=== PATIENT | male | born 1980 | race Caucasian/White ===

== ENCOUNTER 2021-07-23 08:25 | Inpatient (IN) | payer OTHER ==
[~2021-07-23] VITALS: Ht 175.3 cm; Wt 83.5 kg
[2021-07-23] MEDS ORDERED: MASOPHEN325 M4 PO (09:24)
[2021-07-23] MEDS ORDERED: IBUP400 PO (09:25)
[2021-07-23] MEDS ORDERED: GABA300 PO (09:25)
[2021-07-23] MEDS ORDERED: OXYC10ER PO (09:26)
[2021-07-23] MEDS ORDERED: ATOR40TA PO (09:26)
[2021-07-23 10:22] LABS: Hematocrit 34.2 % (37.0-53.0); Hemoglobin 10.8 g/dL (13.5-17.5); Mean Corpuscular HGB 31.6 pg (26.0-34.0); Mean Corpuscular HGB Conc 31.6 g/dL (31.5-36.5); Mean Corpuscular Volume 100 fL (80-100); Mean Platelet Volume 9.3 fL (9.1-12.4); Platelet Count 276 K/mm3 (150-400); RDW Coefficient Variation 12.8 % (11.7-14.2); Red Blood Cell Count 3.42 M/mm3 (4.30-5.90); White Blood Cell Count 10.67 K/mm3 (4.00-11.30)
[2021-07-23 10:43] LABS: Albumin, Blood 2.7 g/dL (3.4-5.0); Albumin/Globulin Ratio 0.7 (0.8-1.8); Bilirubin, Total 0.3 mg/dL (0.1-1.0); Bun/Creatinine Ratio 9.8 (12.0-20.0); Creatinine, Blood 3.38 mg/dL (0.60-1.20); Globulin, Blood 3.8 g/dL (2.2-4.0); Potassium, Blood 4.2 mmol/L (3.5-5.5); Total Protein, Blood 6.5 g/dL (6.4-8.2)
[2021-07-23 10:51] LABS: BAND PERCENT MAN 22 % (0-8); BASOPHILS PERCENT MAN 0 % (0-2); EOSINOPHILS PERCENT MAN 0 % (0-6); LYMPHOCYTES ABSOLUTE MAN 0.21 K/mm3 (0.84-5.20); LYMPHOCYTES PERCENT MAN 2 % (21-46); MONOCYTES PERCENT MAN 0 % (4-13); NEUTROPHILS ABSOLUTE MAN 10.45 K/mm3 (1.96-9.15); SEG NEUTROPHILS PERCENT MAN 76 % (41-73); TOTAL CELLS COUNTED 100
[2021-07-23 12:31] LABS: Source, Urine Voided
[2021-07-23 12:42] LABS: Appearance, Urine Clear (Clear); Blood, Urine 2+ (Neg); Color, Urine Yellow (P-Yellow); Glucose Qualitative, Urine Neg (Neg); Ketones, Urine Neg (Neg); Leukocyte Esterase, Urine Neg (Neg); Nitrite, Urine Neg (Neg); Protein, Urine 2+ (Neg); Specific Gravity, Urine 1.015 (1.003-1.022); Urobilinogen, Urine NORM (Normal)
[2021-07-23 12:54] LABS: Bilirubin, Urine 1+ (Neg)
[2021-07-23 12:57] LABS: Bacteria Few /hpf; Red Blood Cells, Urine 0-2 /hpf (0-2); Renal Epithelial Rare /hpf (0-Rare); Squamous Epithelial Cells Rare /hpf (Few)
[2021-07-23 15:58] LABS: Base Excess Venous -11.9 mmol/L; Bicarbonate Venous 16.4 mmol/L (24.0-30.0); PCO2 Venous 21.6 mmHg (38-42); PO2 Venous 124 mmHg (38-42); pH Blood Venous 7.39 (7.34-7.37)
[2021-07-23 16:22] LABS: International Normalized Ratio 1.12; Prothrombin Time Results 11.7 Sec (9.7-11.5)
[2021-07-23 16:59] LABS: PCO2 Venous 23.5 mmHg (38-42); pH Blood Venous 7.35 (7.34-7.37)
[2021-07-23 17:00] LABS: Base Excess Venous -12.7 mmol/L; Bicarbonate Venous 15.7 mmol/L (24.0-30.0); PO2 Venous 174 mmHg (38-42)
[2021-07-23 17:31] LABS: Hematocrit 30.7 % (37.0-53.0); Hemoglobin 9.7 g/dL (13.5-17.5)
[2021-07-23 17:55] LABS: Creatine Kinase MB 16.4 ng/mL (0.0-3.6); Creatine Kinase MB Index 1.4 (0.0-4.0)
[2021-07-23 19:27] LABS: Hematocrit 31.9 % (37.0-53.0); Hemoglobin 10.2 g/dL (13.5-17.5)
--- NOTE | 2021-07-23 20:45 | NUR ---
PATIENT FEBRILE; NO TYLENOL ORDERS; CALLED DR. AGUILAR AND ORDERS RECIEVED.
--- NOTE | 2021-07-23 21:34 | NUR ---
Assumed care of pt at 1900 as a new ER admit. A/Ox4. Hx of cerebral palsy with multiple joint/tendon surgeries to ble and history of cholecystectomy. Pt has chronic joint pain from this. Maintains above 95% on RA, but 2L NC added for comfort. LS clear upper lobes and dim at bases. Pt reports moist nonproductive cough, does not wear O2 at home. ST on tele 120's with 140's while ambulating. Patient normally ambulates w/o use of any assistive devices at home, and currently is too weak to use restroom and thus is using BSC with SBA. Faint +1 pedal/radial pulses bl. Heparin infusion stopped per emar. Pt has chronic diarrhea since his sherwin in 2009. BP wnl. Will update as changes occur.
[2021-07-24 03:57] LABS: Hemoglobin 9.1 g/dL (13.5-17.5); Mean Corpuscular HGB 31.3 pg (26.0-34.0); Mean Corpuscular HGB Conc 32.5 g/dL (31.5-36.5); Mean Corpuscular Volume 96 fL (80-100); Mean Platelet Volume 9.4 fL (9.1-12.4); Platelet Count 245 K/mm3 (150-400); RDW Coefficient Variation 12.9 % (11.7-14.2); RDW Standard Deviation 45.8 fL (35.1-46.3); Red Blood Cell Count 2.91 M/mm3 (4.30-5.90); White Blood Cell Count 13.47 K/mm3 (4.00-11.30)
[2021-07-24 04:19] LABS: BAND PERCENT MAN 27 % (0-8); BASOPHILS PERCENT MAN 0 % (0-2); EOSINOPHILS PERCENT MAN 0 % (0-6); LYMPHOCYTES ABSOLUTE MAN 0.53 K/mm3 (0.84-5.20); LYMPHOCYTES PERCENT MAN 4 % (21-46); METAMYELOCYTE ABSOLUTE MAN 0.13 K/mm3 (0.00-0.00); METAMYELOCYTE PERCENT MAN 1 % (0-0); MONOCYTES PERCENT MAN 3 % (4-13); NEUTROPHILS ABSOLUTE MAN 12.39 K/mm3 (1.96-9.15); SEG NEUTROPHILS PERCENT MAN 65 % (41-73); TOTAL CELLS COUNTED 100
[2021-07-24 04:22] LABS: Magnesium, Blood 2.4 mg/dL (1.6-2.4)
[2021-07-24 04:23] LABS: Alanine Aminotransfer (ALT/SGP 25 U/L (12-78); Albumin, Blood 2.1 g/dL (3.4-5.0); Albumin/Globulin Ratio 0.6 (0.8-1.8); Alk Phos 64 U/L (50-136); Anion Gap 9 mmol/L (6-16); Aspartate Aminotrans (AST/SGOT 53 U/L (12-37); Bilirubin, Total 0.3 mg/dL (0.1-1.0); Blood Urea Nitrogen 27 mg/dL (8-24); CO2, Blood 19 mmol/L (21-32); Calcium, Blood 7.5 mg/dL (8.5-10.1); Chloride, Blood 112 mmol/L (98-108); Creatinine, Blood 1.08 mg/dL (0.60-1.20); Globulin, Blood 3.6 g/dL (2.2-4.0); Glomerular Filtration Rate >60 (60-); Glucose, Blood 130 mg/dL (70-99); Potassium, Blood 3.8 mmol/L (3.5-5.5); Sodium, Blood 140 mmol/L (136-145); Total Protein, Blood 5.7 g/dL (6.4-8.2)
--- NOTE | 2021-07-24 11:59 | NUR ---
APPLE HELD IS VERY CONCERNED ABOUT MEDICATION FROM INDEPENDANT RESEARCH SHE HAS DONE AT HOME ON GOOGLE ABOUT MEDCIATION, SHE EXPRESSED CONCERN THAT SHE "KNOWS OF PEOPLE WHO HAVE FROM TAKING IT, AND WE NEED HIM TO COME HOME." "CHRIS" IS EDUCATED ABOUT MEDICATION, CHRIS IS PT'S POA PER HER REPORT, HER WISHES ARE HONORED AND MEDICATION IS HELD. IS THOROUGHLY UPDATED ON PT'S STATUS DURING THIS PHONE CALL. PT O2 DECREASED TO 5L NC WITH SPO2 96%. FLUIDS ARE INFUSING AT THIS TIME, VSS
[2021-07-24 16:20] LABS: CHOL/HDL RATIO 4.5; Cholesterol 67 mg/dL (50-200); HDL Cholesterol 15 mg/dL (>39); LDL/HDL RATIO 0.3; Low Density Lipoprotein Chol 5 mg/dL (0-110); Triglycerides 236 mg/dL (30-160); Troponin I 0.475 ng/mL (0.000-0.040); Very Low Density Lipoprot Chol 47 mg/dL (6-32)
--- NOTE | 2021-07-24 17:29 | NUR ---
SHIFT NOTE PT'S O2 NEEDS HAVE DECREASED DURING THIS SHIFT TO 2L NC FROM 7L. PT REPORTS IMPROVEMENT OF BREATHING, STS THAT IS NOW EASIER FOR HIM TO GET UP TO BSC AND BACK TO BED. PT WITH VERY MINIMAL DESATURATION WITH AMBULATION AND RECOVERS QUICKLY. HE IS TALKING IN FULL SENTENCES T/O THE DAY ANSWERS QUESTIONS APPROPRIATELY. VSS. PT'S PAIN AND FEVER HAVE BEEN MANAGED PER EMAR T/O THE DAY. CARDIO CONSULT WITH DR DEMARCO CALLED IN BY DR LAZAR AND CONFIRMED BY PROGRAM DIRECTOR SUBSTANCE ABUSE GABE. ECHO HAS BEEN COMPLETED THIS EVENING RESULTS ARE PENDING. NS CHANGED TO 75ML/HR WHICH IS INFUSING WELL AT THIS TIME. PT STS THAT HE FEELS THAT HE IS WELL ENOUGH TO GO HOME TOMORROW. PT DOES REMAIN ANXIOUS AND AT TIMES EASILY AGITATED. PT WITH DIARRHEA NOTED, PT STS HAS BEEN NORMAL FOR HIM SINCE HIS GALLBLADDER WAS REMOVED.
[2021-07-25 04:14] LABS: Hematocrit 27.2 % (37.0-53.0); Hemoglobin 8.9 g/dL (13.5-17.5); Mean Corpuscular HGB 31.2 pg (26.0-34.0); Mean Corpuscular HGB Conc 32.7 g/dL (31.5-36.5); Mean Corpuscular Volume 95 fL (80-100); Mean Platelet Volume 9.6 fL (9.1-12.4); NRBC ABSOLUTE 0.02 K/mm3 (0.00-0.02); NRBC Auto 0.1 /100 WBC (0.0-0.2); Platelet Count 291 K/mm3 (150-400); RDW Coefficient Variation 12.5 % (11.7-14.2); RDW Standard Deviation 44.3 fL (35.1-46.3); Red Blood Cell Count 2.85 M/mm3 (4.30-5.90); White Blood Cell Count 16.68 K/mm3 (4.00-11.30)
[2021-07-25 04:43] LABS: Albumin, Blood 2.1 g/dL (3.4-5.0); Anion Gap 9 mmol/L (6-16); Blood Urea Nitrogen 29 mg/dL (8-24); Bun/Creatinine Ratio 45.8 (12.0-20.0); CO2, Blood 19 mmol/L (21-32); CPK Creatine Kinase 522 U/L (39-308); Calcium, Blood 8.4 mg/dL (8.5-10.1); Chloride, Blood 113 mmol/L (98-108); Creatinine, Blood 0.63 mg/dL (0.60-1.20); Glomerular Filtration Rate >60 (60-); Glucose, Blood 107 mg/dL (70-99); Phosphorus, Blood 1.6 mg/dL (2.5-4.9); Potassium, Blood 3.7 mmol/L (3.5-5.5); Sodium, Blood 141 mmol/L (136-145)
[2021-07-25 05:16] LABS: BAND PERCENT MAN 11 % (0-8); BASOPHILS PERCENT MAN 0 % (0-2); EOSINOPHILS PERCENT MAN 0 % (0-6); LYMPHOCYTES ABSOLUTE MAN 0.83 K/mm3 (0.84-5.20); LYMPHOCYTES PERCENT MAN 5 % (21-46); MONOCYTES PERCENT MAN 6 % (4-13); NEUTROPHILS ABSOLUTE MAN 14.84 K/mm3 (1.96-9.15); SEG NEUTROPHILS PERCENT MAN 78 % (41-73); TOTAL CELLS COUNTED 100
--- NOTE | 2021-07-25 05:56 | NUR ---
SHIFT SUMMARY PT IS ALERT AND ORIENTED. PT HAS BEEN NAUSEATED WITH VOMITING AT TIME. PT DENIES CHEST PAIN/PRESSURE. VITAL SIGNS ARE STABLE. PT REPORTS PAIN DUE TO CHRONIC PAIN. HE REFUSES TO BE REPOSITIONED. PT IS ABLE TO GET UP TO BSC BY SBA. PT HAS MENTIONED SEVERAL TIMES THAT HE WANTS TO GO HOME TODAY. HE IS ABLE TO USE CALL LIGHT APPROPRIETLY.
--- NOTE | 2021-07-25 13:02 | NUR ---
RECEIVED TELEPHONE REPORT FROM MARI AYALA RN AT 1146. RECEIVED PATIENT TO ROOM 661 VIA BED FROM PCU AT 1205. PATIENT WAS NAUSEOUS ON ARRIVAL AND STARTED DRY HEAVING. WAS IN DIRECT PATIENT CARE WITH HIM FROM [id number] WHERE HE WAS MEDICATED WITH ZOFRAN IV. ASSESSED. AAO X 4. LUNGS CLEAR BUT DIMINISHED ON ROOM AIR. RESPIRATIONS EVEN AND UNLABORED. OLERICULTURIST INTACT. BATTERIES CHANGED AND VERIFIED SR 80'S WITH QUALITY DIRECTOR. NAUSEA IMPROVED A FEW MINUTE AFTER RECEIVING ZOFRAN. HL INTACT L WRIST AND R ANTECUBITAL AREA. ORIENTED TO NEW ROOM AND ENVIRONMENT. BSCC AT BEDSIDE. PATIENT REQUESTED FOOD BY THE TIME NURSE WAS LEAVING. LEGAL NURSE CONSULTANT GETTING HIM SOME CLEAR LIQUIDS AND ORDERING A REGULAR DIET TRAY FOR HIM WELL. PT/OT INVOLVED IN CARE. EVALUATED EARLIER BY PT. WILL MONITOR.
[2021-07-25 13:57] LABS: Percent Saturation 18.1 % (20.0-50.0)
--- NOTE | 2021-07-25 13:59 | NUR ---
PT TRANSITIONED TO MEDICAL STATUS WITH TELE, REPORT GIVEN TO CELINA GARCIA, TRANSFERRED VIA HOSPITAL BED. PT HAVING PAIN AND NAUSEA ISSUES THIS MORNING, PO PAIN MEDS OXYCODONE 10MG WAS RESUMED IV FENTANYL DC'D, ADDED REGLAN 10MG IV FOR NAUSEA WAS GIVEN X1 AND WAS EFFECTIVE. PT WAS ABLE TO TALK TO THE PROVIDER ABOUT PLAN OF CARE, WAS ALSO INVOLVED HAS HAD CONVERSATIONS WITH THIS RN, WIND ENERGY MECHANIC AND THE PROVIDER ABOUT PT'S PLAN OF CARE, IS BEING ANXIOUS ABOUT THE PT AND WAS RE-ASSURED ABOUT PT'S STATUS. PT/OT EVAL ORDERED PT WAS ABLE TO WORK WITH PHYSICAL THERAPIST NO ISSUES REPORTED OTHER THAN FEELING NAUSEOUS WHEN TAKING STEPS OR STANDING UP, RECOMMENDED HOME HEALTH PT. HOME O2 EVAL ORDERED WELL PRIOR TO DISCHARGE. PT WAS RESITUATED IN BED FOR BACK PAIN COMFORT, NO CHEST PAIN REPORTED VITALS HAS BEEN STABLE, NO ABNORMALITY REPORTED ON TELE REMAINS SINUS/SINUS TACH 90-110'S, ON ROOMAIR THE ENTIRE SHIFT SATS ABOVE 95%, HAS DRY COUGH. ALL BELONGINGS SENT WITH THE PT, TRANSFERRED VIA HOSPITAL BED
--- NOTE | 2021-07-25 14:47 | NUR ---
RECEIVED CALL FROM PATIENT'S , WHICH SHE STATED SHE IS HIS POA. STATES SHE WANTED TO FIND OUT WHAT WAS GOING ON WITH THE PATIENT SHE HAD TEXT MESSAGES FROM HIM INDICATING HE DOESN'T KNOW WHAT IS GOING ON WITH HIM. DISCUSSED WITH HER THAT HE IS AWAKE ALERT AND ORIENTED AND ABLE TO MAKE HIS OWN DECISIONS CURRENTLY. REVIEWED CURRENT PLAN OF CARE WITH HER SHE STATES HER SAID HE DOESN'T KNOW WHAT'S EVEN BEING DONE FOR HIM AT THE HOSPITAL. PATIENT RECENTLY COMPLETED HOME O2 EVAL WITH RT. REQUESTS FREQUENCY OF ROXICODONE BE SHORTENED AND PHENERGAN BE ADDED ZOFRAN AND REGLAN ARE NOT EFFECTIVE FOR HIM. ALSO REQUESTS MD TO RE-EVALUATE HIM TODAY TO SEE IF HE CAN BE DISCHARGED LATER THIS AFTERNOON. WILL MONITOR.
[2021-07-25] MEDS ORDERED: VISBIOME 112.51 EACH PO (16:32)
[2021-07-25] MEDS ORDERED: CEPH500 PO (16:32)
[2021-07-25] MEDS ORDERED: AZIT250 PO (16:32)
[2021-07-25] MEDS ORDERED: DEXA6 PO (16:33)
--- NOTE | 2021-07-25 16:39 | NUR ---
MEDICATED AT 1623 FOR C/O NAUSEA. D/C ORDERS AND HOME O2 SET UP ARE IN PROGRESS. INSTRUCTED PATIENT I WOULD BE IN WITH DISCHARGE PAPERWORK ONCE COMPLETE. VERBALIZED UNDERSTANDING.
[2021-07-25] MEDS ORDERED: PROM25 PO (16:47)
--- NOTE | 2021-07-25 16:50 | NUR ---
AWAITING DISCHARGE PAPERWORK TO BE COMPLETE FOR D/C, HOME O2 TO BE SET UP AND SPOUSE TO ARRIVE FOR TEACHING. AAO X 4. MEDICATED X 2 FOR NAUSEA SINCE ARRIVAL FROM PCU. TELE RUNNING SR 80'S PER TEA BAG MACHINE TENDER. WILL MONITOR.
--- NOTE | 2021-07-25 18:07 | NUR ---
DC INSTRUCTIONS REVIEWED WITH PT AND SPOUSE- VERB UNDERSTANDING OF MEDS, FOLLOW UP, DIET, ACTIVITY. NEW RX FAXED TO [facility] IN [place].
--- NOTE | 2021-07-25 18:14 | NUR ---
DISCHARGE TEACHING COMPLETED PER SHERIDAN MACDONALD RN CHARGE NURSE. OXYGEN DELIVERED TO PATIENT'S HOSPITAL ROOM PRIOR TO DISCHARGE. PATIENT DISCHARGED HOME PER WHEELCHAIR PER PERSONAL VEHICLE WITH SPOUSE. AAO X 4. NO COMPLAINTS VOICED AT DISCHARGE.
== END 2021-07-25 18:15 | disposition home health service (06) | DRG 871 ==
LOC: ER 08:25 → EDBD 08:25 → PCU 15:17 → ER 18:13 → PCU 18:14 → EDBEDREQ 18:39 → MEDS 07-25 12:10
PROVIDERS: Emergency Medicine; Family Medicine; Nurse Practitioner Acute Care; ADMIT Internal Medicine
PROC: 8E0ZXY6 Isolation (ICD-10-PCS; principal; 2021-07-23)
PROC: 3E0333Z Introduction of Anti-inflammatory into Peripheral Vein, Percutaneous Approach (ICD-10-PCS; 2021-07-23)
PROC: XW033E5 Introduction of Remdesivir Anti-infective into Peripheral Vein, Percutaneous Approach, New Technology Group 5 (ICD-10-PCS; 2021-07-24)
PROC: XW0DXM6 Introduction of Baricitinib into Mouth and Pharynx, External Approach, New Technology Group 6 (ICD-10-PCS; 2021-07-24)
PROC: 3E03329 Introduction of Other Anti-infective into Peripheral Vein, Percutaneous Approach (ICD-10-PCS; 2021-07-25)
DX: A41.89 Other specified sepsis (principal); R65.21 Severe sepsis with septic shock; J12.82 Pneumonia due to coronavirus disease 2019; J96.01 Acute respiratory failure with hypoxia; U07.1 COVID-19; G93.41 Metabolic encephalopathy; N17.9 Acute kidney failure, unspecified; E87.2 Acidosis; G89.29 Other chronic pain; E78.5 Hyperlipidemia, unspecified; Z90.49 Acquired absence of other specified parts of digestive tract; Z79.899 Other long term (current) drug therapy; Z88.8 Allergy status to other drugs, medicaments and biological substances; E83.39 Other disorders of phosphorus metabolism
CPT/HCPCS: 36415; 71045; 71260; 76770; 80053; 80061; 80069; 81001; 82550; 82553; 82607; 82728; 82746; 82803; 83540; 83550; 83605; 83735; 83880; 84100; 84145; 84484; 84550; 85014; 85018; 85025; 85520; 85610; 85730; 87040; 93005; 93010; 93306; 94660; 94761; 94762; 96365-59; 96375-59; 96376-59; 97110; 97162; 99285-25; A9270; C9399; J0456; J0696; J1100; J1644; J1885; J2405; J2550; J2765; J3010; J3475; J7030; J7050; J7120; Q9967

== ENCOUNTER 2022-03-14 15:51 | Emergency (ER) | payer BC ==
[~2022-03-14] VITALS: Ht 177.8 cm; Wt 80.7 kg
[~2022-03-14 15:51] MED LIST: ATOR40TA PO; AZIT250 PO; CEPH500 PO; DEXA6 PO; GABA300 PO; IBUP400 PO; MASOPHEN325 M4 PO; OXYC10ER PO; PROM25 PO; VISBIOME 112.51 EACH PO
[2022-03-14 17:33] LABS: BASOPHILS ABSOLUTE AUTO 0.04 K/mm3 (0.00-0.23); BASOPHILS PERCENT AUTO 1 % (0-2); EOSINOPHILS ABSOLUTE AUTO 0.02 K/mm3 (0.00-0.68); EOSINOPHILS PERCENT AUTO 0 % (0-6); Hematocrit 44.9 % (37.0-53.0); Hemoglobin 15.2 g/dL (13.5-17.5); IMMATURE GRAN ABSOLUTE AUTO 0.07 K/mm3 (0.00-0.10); IMMATURE GRAN PERCENT AUTO 1 % (0-1); LYMPHOCYTES PERCENT AUTO 14 % (21-46); MONOCYTES ABSOLUTE AUTO 0.76 K/mm3 (0.16-1.47); MONOCYTES PERCENT AUTO 10 % (4-13); Mean Corpuscular HGB 30.4 pg (26.0-34.0); Mean Corpuscular HGB Conc 33.9 g/dL (31.5-36.5); Mean Corpuscular Volume 90 fL (80-100); NEUTROPHILS ABSOLUTE AUTO 5.96 K/mm3 (1.96-9.15); NEUTROPHILS PERCENT AUTO 75 % (41-73); NRBC ABSOLUTE 0.02 K/mm3 (0.00-0.02); NRBC Auto 0.3 /100 WBC (0.0-0.2); RDW Coefficient Variation 14.1 % (11.7-14.2); RDW Standard Deviation 46.9 fL (35.1-46.3); White Blood Cell Count 7.95 K/mm3 (4.00-11.30)
[2022-03-14 17:49] LABS: Bilirubin, Total 0.3 mg/dL (0.1-1.0); Bun/Creatinine Ratio 11.4 (12.0-20.0); Calcium, Blood 9.4 mg/dL (8.5-10.1); Creatinine, Blood 0.79 mg/dL (0.60-1.20); Globulin, Blood 4.1 g/dL (2.2-4.0); Potassium, Blood 4.6 mmol/L (3.5-5.5); Total Protein, Blood 8.3 g/dL (6.4-8.2)
[2022-03-14 17:51] LABS: Albumin, Blood 4.2 g/dL (3.4-5.0)
[2022-03-14] MEDS ORDERED: SUBOXONE 8 MG-1 EACH SL (18:55)
[2022-03-14] MEDS ORDERED: DEXL60CA3 PO (18:55)
[2022-03-14] MEDS ORDERED: Crestor40 MG PO (18:55)
[2022-03-14 20:20] LABS: Mean Platelet Volume 8.6 fL (9.1-12.4); Platelet Count 117 K/mm3 (150-400)
[2022-03-14] MEDS ORDERED: ONDA4ODT MM (21:14)
== END 2022-03-14 21:34 | disposition home or self-care (01) ==
LOC: ER 15:51
PROVIDERS: Physician Assistant; Student in an Organized Health Care Education/Training Program
DX: U07.1 COVID-19 (principal); Z88.5 Allergy status to narcotic agent; Z79.899 Other long term (current) drug therapy
CPT/HCPCS: 36415; 71046; 80053; 85025; 85049; A9270; J1885; J2405; J3010; J7030

== ENCOUNTER → 2023-03-02 | Outpatient (CLI) | payer OTHER ==
[~2023-03-02] MED LIST changes: +Crestor40 MG PO; +DEXL60CA3 PO; +ONDA4ODT MM; +SUBOXONE 8 MG-1 EACH SL
[2023-03-02 13:10] LABS: BASOPHILS ABSOLUTE AUTO 0.07 K/mm3 (0.00-0.23); BASOPHILS PERCENT AUTO 1 % (0-2); EOSINOPHILS ABSOLUTE AUTO 0.21 K/mm3 (0.00-0.68); EOSINOPHILS PERCENT AUTO 4 % (0-6); Hematocrit 38.9 % (37.0-53.0); Hemoglobin 13.4 g/dL (13.5-17.5); IMMATURE GRAN ABSOLUTE AUTO 0.01 K/mm3 (0.00-0.10); IMMATURE GRAN PERCENT AUTO 0 % (0-1); LYMPHOCYTES ABSOLUTE AUTO 2.09 K/mm3 (0.84-5.20); LYMPHOCYTES PERCENT AUTO 38 % (21-46); MONOCYTES ABSOLUTE AUTO 0.47 K/mm3 (0.16-1.47); MONOCYTES PERCENT AUTO 9 % (4-13); Mean Corpuscular HGB Conc 34.4 g/dL (31.5-36.5); Mean Corpuscular Volume 93 fL (80-100); NEUTROPHILS ABSOLUTE AUTO 2.67 K/mm3 (1.96-9.15); NEUTROPHILS PERCENT AUTO 48 % (41-73); Platelet Count 253 K/mm3 (150-400); RDW Coefficient Variation 12.2 % (11.7-14.2); RDW Standard Deviation 41.8 fL (35.1-46.3); Red Blood Cell Count 4.19 M/mm3 (4.30-5.90); White Blood Cell Count 5.52 K/mm3 (4.00-11.30)
[2023-03-02 13:49] LABS: Alanine Aminotransfer (ALT/SGP 36 U/L (12-78); Albumin, Blood 4.2 g/dL (3.4-5.0); Albumin/Globulin Ratio 1.2 (0.8-1.8); Alk Phos 81 U/L (50-136); Anion Gap 7 mmol/L (6-16); Aspartate Aminotrans (AST/SGOT 22 U/L (12-37); Bilirubin, Total 0.3 mg/dL (0.1-1.0); Blood Urea Nitrogen 16 mg/dL (8-24); Bun/Creatinine Ratio 19.8 (12.0-20.0); CHOL/HDL RATIO 2.3; CO2, Blood 23 mmol/L (21-32); Calcium, Blood 9.3 mg/dL (8.5-10.1); Chloride, Blood 111 mmol/L (98-108); Cholesterol 125 mg/dL (50-200); Creatinine, Blood 0.81 mg/dL (0.60-1.20); Globulin, Blood 3.4 g/dL (2.2-4.0); Glomerular Filtration Rate 112 (60-); Glucose, Blood 101 mg/dL (70-99); HDL Cholesterol 55 mg/dL (>39); LDL/HDL RATIO 0.4; Low Density Lipoprotein Chol 23 mg/dL (0-110); Potassium, Blood 4.3 mmol/L (3.5-5.5); Sodium, Blood 141 mmol/L (136-145); Total Protein, Blood 7.6 g/dL (6.4-8.2); Triglycerides 237 mg/dL (30-160); Very Low Density Lipoprot Chol 47 mg/dL (6-32)
== END ==
LOC: LAB 10:50 → LAB SHORT 10:50
PROVIDERS: Physician Assistant
DX: E78.5 Hyperlipidemia, unspecified (principal); R03.0 Elevated blood-pressure reading, without diagnosis of hypertension
CPT/HCPCS: 80053; 80061; 85025

== ENCOUNTER → 2023-11-04 | Outpatient (CLI) | payer OTHER ==
[2023-11-04 16:43] LABS: U Amphetamine Screen Not Detected; U Barbituate Screen Not Detected; U Benzodiazapine Screen Not Detected; U Buprenorphine Screen Not Detected; U Cannabinoids Screen Not Detected; U Cocaine Screen Not Detected; U Methadone Screen Not Detected; U Methamphetamine Screen Not Detected; U Opiates Screen DETECTED; U Oxycodone Screen Not Detected; U Phencyclidine Screen Not Detected
[2023-11-07 09:00] LABS: BUPRENORPHINE GLUC,URN,QUANT <5 ng/mL; BUPRENORPHINE,URN,QUANT <2 ng/mL; NALOXONE,URN,QUANT <100 ng/mL; NORBUPRENORPHINE GLUC,UR,QUANT <5 ng/mL; NORBUPRENORPHINE,URN,QUANT <2 ng/mL
[2023-11-10 00:23] LABS: 6-ACETYLMORPHINE, URN, QUANT <10 ng/mL; CODEINE, URN, QUANT <20 ng/mL; HYDROCODONE, URN, QUANT <20 ng/mL; HYDROMORPHONE, URN, QUANT <20 ng/mL; MORPHINE, URN, QUANT 2108 ng/mL; NORHYDROCODONE, URN, QUANT <20 ng/mL; NOROXYCODONE, URN, QUANT 79 ng/mL; NOROXYMORPHONE, URN, QUANT <20 ng/mL; OXYCODONE, URN, QUANT <20 ng/mL; OXYMORPHONE, URN, QUANT <20 ng/mL
[2023-11-13 07:07] LABS: AMITRIPTYLINE, QUANT, URN <100 ng/mL; CLOMIPRAMINE QUANT, URN <200 ng/mL; DESIPRAMINE QUANT, URN <100 ng/mL; DOXEPIN QUANT, URN <100 ng/mL; IMIPRAMINE QUANT, URN <100 ng/mL; NORCLOMIPRAMINE QUANT, URN <200 ng/mL; NORDOXEPIN QUANT, URN <100 ng/mL; NORTRIPTYLINE, QUANT, URN <100 ng/mL; PROTRIPTYLINE QUANT, URN <100 ng/mL
== END | disposition home or self-care (01) ==
LOC: LAB 14:54 → LAB SHORT 14:54
PROVIDERS: Family Medicine
DX: Z51.81 Encounter for therapeutic drug level monitoring (principal); Z79.899 Other long term (current) drug therapy
CPT/HCPCS: G0480; G0481